=== PATIENT | male | born 1975 | race Caucasian/White ===

== ENCOUNTER 2018-04-05 12:10 | Emergency (ER) | payer BC, OTHER ==
[2018-04-05 12:18] VITALS: BP 135/89; PULSE 79; RESP 18; TEMP 97.8
--- NOTE | 2018-04-05 12:43 | ED ---
Upper Extremity HPI - General Chief Complaint: Extremity Injury, Upper Stated Complaint: [facility]-Finger Lac Time Seen by Provider: 04/05/18 12:19 Source: patient Mode of arrival: ambulatory Limitations: no limitations - History of Present Illness Initial Comments: 42-year-old male presents emergency Department with chief complaint of right hand index finger injury. Patient states he was lifting a heavy shredder states they went to set it down and it slipped. Patient states that the other pro let go causing it to crush his finger. He states that there is bleeding from underneath the nail. He states that there was driving pain but has relief. Patient states his tetanus is up-to-date within last 5 years. States he is able to move it but is very sore. Patient offers no other complaints. - Related Data Home Medications Medication Instructions Recorded Confirmed Levothyroxine Sodium [Synthroid] 50 mcg PO DAILY 12/16/14 12/17/15 Levothyroxine Sodium [Synthroid] 100 mcg PO DAILY 12/17/15 12/17/15 Multivitamins, Thera [Multivitamin] 1 tab PO DAILY 12/17/15 12/17/15 [place]-3 Fatty Acids/Fish Oil [Fish 1 cap PO DAILY 12/17/15 12/17/15 Oil 1,000 mg Softgel] Previous Rx's Medication Instructions Recorded Meclizine [Antivert] 25 mg PO DAILY 10 Days tab 12/17/15 Ondansetron Odt [Zofran ODT] 4 mg PO Q8HR PRN #15 tab 12/17/15 Ibuprofen [Motrin] 600 mg PO Q8HR PRN #30 tab 04/05/18 Allergies Allergy/AdvReac Type Severity Reaction Status Date / Time No Known Allergies Allergy Verified 04/05/18 12:17 Review of Systems ROS Statement: Those systems with pertinent positive or pertinent negative responses have been documented in the HPI. ROS Other: All systems not noted in ROS Statement are negative. Past Medical History Past Medical History: Thyroid Disorder History of Any Multi-Drug Resistant Organisms: None Reported Past Surgical History: No Surgical Hx Reported Past Psychological History: No Psychological Hx Reported Smoking Status: Never smoker Past Alcohol Use History: None Reported Past Drug Use History: None Reported General Exam Limitations: no limitations General appearance: alert, in no apparent distress Head exam: Present: atraumatic, normocephalic, normal inspection Neck exam: Present: normal inspection, full ROM. Absent: tenderness, meningismus, lymphadenopathy Respiratory exam: Present: normal lung sounds bilaterally. Absent: respiratory distress, wheezes, rales, rhonchi, stridor Cardiovascular Exam: Present: regular rate, normal rhythm, normal heart sounds. Absent: systolic murmur, diastolic murmur, rubs, gallop, clicks Extremities exam: Present: other (Right hand second digit there is bleeding noted from the distal portion no open laceration nail is partially ruptured though intact, finger has full range of motion with moderate tenderness to distal portion) Course Vital Signs 04/05/18 12:14 Temperature 97.8 F Pulse Rate 79 Respiratory 18 Rate Blood Pressure 135/89 O2 Sat by Pulse 98 Oximetry Medical Decision Making - Medical Decision Making 42-year-old male presented for right hand index finger injury. X-rays were obtained no acute fracture tetanus is up-to-date at this point. Patient has a right finger contusion, nail injury. Return parameters were discussed patient will follow-up with [facility]. Disposition Clinical Impression: Crushing injury of finger of right hand, Injury of nail Disposition: HOME SELF-CARE Condition: Stable Instructions: Crush Injury (ED) Additional Instructions: Please return to the Emergency Department if symptoms worsen or any other concerns. Prescriptions: Ibuprofen [Motrin] 600 mg PO Q8HR PRN #30 tab PRN Reason: Pain Is patient prescribed a controlled substance at d/c from ED?: No Referrals: Maricel Ryan MD [Primary Care Provider] - 1-2 days Time of Disposition: 13:45
--- NOTE | 2018-04-05 13:27 | XR ---
EXAMINATION TYPE: XR finger RT DATE OF EXAM: 04/05/2018 COMPARISON: None HISTORY: Crush injury second digit TECHNIQUE: 3 views of the right index finger are obtained. FINDINGS: Joint spaces are preserved. Soft tissues appear normal. No acute fractures are evident. Follow-up exams can be performed 7-10 days from acute trauma for continued pain. IMPRESSION: 1. Normal three-view right index finger
== END 2018-04-05 14:06 | disposition home or self-care (01) ==
LOC: EC 12:10
DX: S60.121A Contusion of right index finger with damage to nail, initial encounter (principal); E07.9 Disorder of thyroid, unspecified; Z79.899 Other long term (current) drug therapy; W20.8XXA Other cause of strike by thrown, projected or falling object, initial encounter; Y93.89 Activity, other specified; Y92.69 Other specified industrial and construction area as the place of occurrence of the external cause; Y99.0 Civilian activity done for income or pay
CPT/HCPCS: 99283

== ENCOUNTER 2020-03-08 12:45 | Emergency (ER) | payer BC ==
[2020-03-08 12:51] VITALS: RESP 18
--- NOTE | 2020-03-08 13:02 | ED ---
Fall HPI - General Chief Complaint: Fall Stated Complaint: Fall Time Seen by Provider: 03/08/20 12:59 Source: patient Mode of arrival: ambulatory - History of Present Illness Initial Comments: 44-year-old male presenting to the emergency department with a chief complaint of a fall. Patient states he was up on a ladder approximately 5 feet when it lost balance and he landed on a wooden stove mostly with his hands and face. Patient reports he has a laceration on his chin which was initially bleeding but has since resolved. Patient also reports pain in the left wrist, particularly the medial aspect. He also reports some swelling in the region of states he has mostly full range of motion but some tenderness to palpation only. He denies taking medication to alleviate the symptoms. Tetanus is not up-to-date. No loss of consciousness. No blood thinners. - Related Data Home Medications Medication Instructions Recorded Confirmed Levothyroxine Sodium [Synthroid] 112 mcg PO DAILY 03/08/20 03/08/20 Allergies Allergy/AdvReac Type Severity Reaction Status Date / Time No Known Allergies Allergy Verified 03/08/20 14:19 Review of Systems ROS Statement: Those systems with pertinent positive or pertinent negative responses have been documented in the HPI. ROS Other: All systems not noted in ROS Statement are negative. Past Medical History Past Medical History: Thyroid Disorder History of Any Multi-Drug Resistant Organisms: None Reported Past Surgical History: No Surgical Hx Reported Past Psychological History: No Psychological Hx Reported Smoking Status: Never smoker Past Alcohol Use History: None Reported Past Drug Use History: None Reported General Exam Limitations: no limitations General appearance: alert, in no apparent distress Head exam: Present: atraumatic, normocephalic, normal inspection. Absent: other (Negative Ortiz sign, raccoon eyes, hemotympanum.) Eye exam: Present: normal appearance, PERRL, EOMI, other (Superficial laceration under the lower lip measuring approximately 2 cm in length.). Absent: scleral icterus, conjunctival injection, nystagmus Pupils: Present: normal accommodation ENT exam: Present: normal exam, normal oropharynx (No intraoral trauma.), mucous membranes moist, TM's normal bilaterally, normal external ear exam Neck exam: Present: normal inspection, full ROM. Absent: tenderness, lymphadenopathy Respiratory exam: Present: normal lung sounds bilaterally. Absent: respiratory distress, wheezes, rales, rhonchi, stridor, chest wall tenderness (No chest wall pain), accessory muscle use Cardiovascular Exam: Present: regular rate, normal rhythm, normal heart sounds. Absent: systolic murmur, diastolic murmur GI/Abdominal exam: Present: soft. Absent: distended, tenderness, guarding, rebound Extremities exam: Present: full ROM (Full range of motion of left wrist), tenderness (Tenderness along the distal radius of the left forearm. No snuffbox tenderness.), normal capillary refill, other (+2 ulnar and radial pulses bilateral. Sensation intact in the left upper extremity.). Absent: normal inspection (Swelling and slight ecchymosis in the medial aspect of the left wrist.), pedal edema, joint swelling, calf tenderness Back exam: Present: normal inspection, full ROM. Absent: tenderness, CVA tenderness (R), CVA tenderness (L), muscle spasm, paraspinal tenderness, vertebral tenderness Neurological exam: Present: alert, oriented X3, normal gait Psychiatric exam: Present: normal affect, normal mood. Absent: depressed, agitated Skin exam: Present: warm, dry, intact, normal color Course Vital Signs 03/08/20 03/08/20 12:48 14:34 Temperature 97.2 F L 97.6 F Pulse Rate 65 62 Respiratory 18 18 Rate Blood Pressure 123/83 120/80 O2 Sat by Pulse 97 99 Oximetry Procedures - Laceration Laceration #1 Consent Obtained: verbal consent Indication: laceration Site: face Size (cm): 2 Description: linear, clean Depth: simple, single layer Sedation/Analgesia: none Pre-repair: irrigated extensively, deep structures intact Type of Sutures: other (Tissue adhesive) Size of Sutures: other (Tissue adhesive) Technique: other (Tissue adhesive) Patient Tolerated Procedure: well, no complications - Orthopedic Splinting/Casting Injury #1 Side: left Upper Extremity Injury Location: short arm Upper Extremity Immobilizer: volar splint, Duy wrap, synthetic pre-padded splint Medical Decision Making - Medical Decision Making 44-year-old male presenting to the emergency department with a chief complaint of a fall. Physical examination, patient has a small laceration under the lower lip that is very superficial. He also has some swelling and pain and tenderness in the wrist, left. He is otherwise neurovascularly intact in the left upper extremity. CT of the brain and C-spine is unremarkable. The small laceration was repaired with tissue adhesive. X-ray of the left wrist reveals a comminuted distal radial fracture with minimal displacement. Patient was offered analgesia, he declined initially. He did request some analgesia for home. He was given Tylenol 3 starter pack. I did apply a volar splint on the left upper extremity. I advised him to follow-up with the software product specialist. He was otherwise advised to alternate between Tylenol and Motrin for pain control. Tetanus was also updated. Strict return parameters were thoroughly discussed with patient is worsening agreeable. Case discussed physician. Disposition Clinical Impression: Fall, Head injury, Laceration, Distal radius fracture, left Disposition: HOME SELF-CARE Condition: Stable Instructions (If sedation given, give patient instructions): Wrist Fracture in Adults (ED) Additional Instructions: Follow with software product specialist. Take prescribed medication as directed. Do not drive or operate heavy machinery when taking Tylenol 3. Return to emergency department if symptoms worsen. Is patient prescribed a controlled substance at d/c from ED?: No Referrals: None,Stated [REFERRING] - 1-2 days Trev Gr MD [STAFF PHYSICIAN] - 1-2 days Time of Disposition: 14:15
[2020-03-08] MEDS ORDERED: TOPICAL SKIN ADHESIVE 1 EACH AMP TOPICAL ONE (13:14)
--- NOTE | 2020-03-08 13:26 | CT ---
EXAMINATION TYPE: CT brain steph cazares DATE OF EXAM: 03/08/2020 COMPARISON: None HISTORY: fall down ladder, headache, neck pain CT DLP: 1457.[address] Brain: Unenhanced CT of the brain was performed. The ventricles, basal cisterns and sulci overlying the cerebral convexities demonstrate a normal appe arance. There is no evidence for intracranial hemorrhage or sulcal effacement. No mass effects are seen. If symptoms persist consider MRI. Osseous calvarium is intact. IMPRESSION: No acute intracranial process CT Cervical Spine: Unenhanced CT of the cervical spine was performed with bone and soft tissue window settings submitted . Coronal and sagittal reconstruction is obtained. There is normal alignment and prevertebral soft tissues. I do not see evidence for fracture or sublu xation. No significant degenerative changes are present. The lung apices are clear. IMPRESSION: No evidence for acute fracture or subluxation of the cervical spine.
--- NOTE | 2020-03-08 13:31 | XR ---
EXAMINATION TYPE: XR wrist complete LT DATE OF EXAM: 03/08/2020 CLINICAL HISTORY: pain TECHNIQUE: Frontal, lateral and oblique images of the left wrist are obtained. COMPARISON: None. FINDINGS: The distal radial fracture. Ulnar styloid component fracture noted as well. There is eviden ce of intra-articular extension. Displacement of an estimated 1.3 mm. Overlying soft tissue swelling noted. IMPRESSION: Comminuted distal radial fracture with ulnar styloid component. ICD 10 closed FRACTURE, INITIAL EVALUATION
[2020-03-08] MEDS ORDERED: ACET/COD 300 MG/30 MG STARTER PACK 6 TAB BTL PO STA (14:19)
[2020-03-08 14:35] VITALS: BP 120/80; PULSE 62; TEMP 97.6
== END 2020-03-08 14:34 | disposition home or self-care (01) ==
LOC: EC 12:45
DX: S52.502A Unspecified fracture of the lower end of left radius, initial encounter for closed fracture (principal); S01.511A Laceration without foreign body of lip, initial encounter; E07.9 Disorder of thyroid, unspecified; Z79.890 Hormone replacement therapy; W11.XXXA Fall on and from ladder, initial encounter
CPT/HCPCS: 12011; 29125; 70450; 72125; 99284

== ENCOUNTER → 2020-12-10 | Outpatient (CLI) | payer BC ==
--- NOTE | 2020-12-10 12:55 | FL ---
EXAMINATION TYPE: FL barium swallow DATE OF EXAM: 12/10/2020 CLINICAL INDICATION: 45-year-old male R13.14, pharyngoesophageal phase dysphagia, food sticks in thro at with episodes of coughing and choking. COMPARISON: None Total Fluoroscopy Time: 2 minutes 24 seconds 59 images obtained. FINDINGS: During swallowing, there appears to be trace intermittent penetration posteriorly towards the larynx. No aspiration is seen. The hypopharyngeal anatomy is preserved. The thoracic esophagus shows scattered fine saw-tooth contour throughout its length. Otherwise, no haywood spicious filling defect. There is also a small hiatal hernia. Moderate to severe gastroesophageal reflux during Valsalva and p ositional maneuvers. IMPRESSION: 1. Fine sawtooth contour along the length of the thoracic esophagus could represent irregularity rel ating to a nonspecific esophagitis. Correlate as to possible etiologies such as Maria L or other infe ctious causes. Noninfectious causes such as reflux esophagitis are also possible. Recommend direct vi sualization. 2. Small hiatal hernia with an episode of moderate to severe gastroesophageal reflux. 3. Trace intermittent penetration along the posterior wall of the larynx. This may be a consequence o f an underlying esophagitis/infectious etiology. Again, correlate with findings on direct visualizati on.
== END | disposition home or self-care (01) ==
LOC: RADUSWWP 07:38
PROVIDERS: ATTEND Family Medicine
DX: K44.9 Diaphragmatic hernia without obstruction or gangrene (principal); K21.9 Gastro-esophageal reflux disease without esophagitis; R13.14 Dysphagia, pharyngoesophageal phase
CPT/HCPCS: 74220

== ENCOUNTER → 2021-01-29 | Outpatient (CLI) | payer BC ==
[2021-01-29 15:00] LABS: Basophils # (A) 0.04 X 10*3/uL (0.00-0.10); Basophils % (A) 0.8 %; Eosinophils # (A) 0.21 X 10*3/uL (0.04-0.35); Eosinophils % (A) 4.2 %; HCT 47.1 % (39.6-50.0); HGB 15.6 g/dL (13.0-17.0); Lymphocytes # (A) 1.72 X 10*3/uL (0.90-5.00); Lymphocytes % (A) 34.3 %; MCH 27.5 pg (27.0-32.0); MCHC 33.1 g/dL (32.0-37.0); MCV 82.9 fL (80.0-97.0); Mean Platelet Volume 11.7 fL (9.5-12.2); Monocytes # (A) 0.41 X 10*3/uL (0.20-1.00); Monocytes % (A) 8.2 %; Neutrophils # (A) 2.62 X 10*3/uL (1.80-7.70); Neutrophils % (A) 52.3 %; Platelet Count 205 X 10*3/uL (140-440); RBC 5.68 X 10*6/uL (4.40-5.60); RDW 12.8 % (11.5-14.5); WBC 5.01 X 10*3/uL (4.50-10.00)
== END | disposition home or self-care (01) ==
LOC: LABWHC1 08:51
PROVIDERS: ATTEND Nurse Practitioner
DX: J30.9 Allergic rhinitis, unspecified (principal); R53.83 Other fatigue; R06.2 Wheezing; R06.02 Shortness of breath; R05 Cough
CPT/HCPCS: 36415; 82103; 82104; 82785; 85025; 86001; 86003; 86606; 86609

== ENCOUNTER 2021-03-09 09:21 | Day surgery (SDC) | payer BC ==
[2021-03-05 14:43] VITALS: BMI 31.3
[~2021-03-09 09:21] MED LIST: LACTATED RINGERS 1,000 ML IV SCH; LIDOCAINE 1% (10MG/ML) FOR IV START INTRADERMA PRN
[2021-03-09 09:46] VITALS: TEMP 96.1
[2021-03-09] MEDS ORDERED: PROPOFOL 10 MG/ML 20 ML VIAL IV ONE (10:21)
[2021-03-09] MEDS ORDERED: LIDOCAINE 1% INJ 10MG/ML (20 ML MDV) ONE (10:21)
[2021-03-09] MEDS ORDERED: GLYCOPYRROLATE 0.2 MG/ML 2 ML VIAL ONE (10:21)
--- NOTE | 2021-03-09 10:26 | P.GSHP ---
History of Present Illness H&P Date: 03/09/21 Chief Complaint: Dysphagia Patient here today for upper endoscopy. Esophagram showed some irregularity of the esophagus suspicious for esophagitis. Describes intermittent dysphagia for the past several years. Takes antiacids daily. No significant heartburn. 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 History of Any Multi-Drug Resistant Organisms: None Reported Past Surgical History: No Surgical Hx Reported Additional Past Surgical History / Comment(s): [place] teeth Past Anesthesia/Blood Transfusion Reactions: No Reported Reaction Smoking Status: Never smoker - Past Family History Mother Family Medical History: No Reported History Medications and Allergies Home Medications Medication Instructions Recorded Confirmed Type Levothyroxine Sodium [Synthroid] 112 mcg PO DAILY 03/08/20 03/05/21 History Cyanocobalamin (Vitamin B-12) 5,000 mcg PO DAILY 03/05/21 03/05/21 History [Vitamin B12] Omeprazole [PriLOSEC] 20 mg PO AC-BRKFST 03/05/21 03/05/21 History Allergies Allergy/AdvReac Type Severity Reaction Status Date / Time No Known Allergies Allergy Verified 03/09/21 09:35 Surgical - Exam Vital Signs Temp Pulse Resp BP Pulse Ox 96.1 F L 68 15 136/85 97 03/09/21 09:44 03/09/21 09:44 03/09/21 09:44 03/09/21 09:44 03/09/21 09:44 Physical exam: General: Well-developed, well-nourished HEENT: Normocephalic, sclerae nonicteric Abdomen: Nontender, nondistended Extremities: No edema Neuro: Alert and oriented Assessment and Plan (1) Dysphagia Narrative/Plan: Will proceed with upper endoscopy Current Visit: Yes Status: Acute Code(s): R13.10 - DYSPHAGIA, UNSPECIFIED SNOMED Code(s): 42544066
--- NOTE | 2021-03-09 10:34 | P.PCN ---
Date of Procedure: 03/09/21 Procedure(s) Performed: Preoperative Dx: Dysphagia Postoperative Dx: mild gastritis, distal esophagitis, small hiatal hernia Procedure: EGD with Bx Anesthesia: Sedation Endoscopist: Dr. Graham Specimens: antrum, GE junction Endoscopic Procedure: The patient was on the endoscopy table in the left decubitus position. The Olympus gastroscope was inserted into the oropharynx and passed under direct visualization to the region of the third portion of the duodenum. From that point the scope was slowly withdrawn inspecting all surfaces carefully. There were no neoplastic inflammatory or polypoid lesions throughout the duodenum. The pylorus was widely patent. The stomach was carefully inspected. There was mild gastritis present. A biopsy took place. The remainder of the stomach appeared normal. Retroflexion revealed a small sliding hiatal hernia. At the GE junction the patient had very slight narrowing consistent with early Schatzki's ring formation. There was mild inflammation of the GE junction. A biopsy was taken. The remainder the esophagus appear normal. The patient was then taken to the recovery room in stable condition per anesthesia guidelines. Recommendations: Continue antiacid therapy. Await biopsy results.
[2021-03-09 10:56] VITALS: BP 113/66; PULSE 59; RESP 18
== END 2021-03-09 11:35 | disposition home or self-care (01) ==
LOC: ORWHC2ENDO 09:21
PROVIDERS: ATTEND Surgery
DX: K29.50 Unspecified chronic gastritis without bleeding (principal); K21.00 Gastro-esophageal reflux disease with esophagitis, without bleeding; K44.9 Diaphragmatic hernia without obstruction or gangrene
CPT/HCPCS: 43239; 88305; J2001; J2704

== ENCOUNTER 2021-12-06 20:53 | Emergency (ER) | payer BC ==
[2021-12-06 21:04] VITALS: PULSE 64; RESP 22; TEMP 97.8
[2021-12-06] MEDS ORDERED: TOPICAL SKIN ADHESIVE 1 EACH AMP TOPICAL ONE (21:17)
[2021-12-06] MEDS ORDERED: LIDOCAINE/EPINEPHR/TETRACAINE 5 ML BOTTLE TOPICAL ONE (21:17)
--- NOTE | 2021-12-06 21:53 | ED ---
Wound/Laceration HPI - General Chief Complaint: Wound/Laceration Stated Complaint: Left Thumb Laceration Time Seen by Provider: 12/06/21 21:05 Source: patient, RN notes reviewed Mode of arrival: ambulatory Limitations: no limitations - History of Present Illness Initial Comments: This is a pleasant 46-year-old male who was using a grinding device at home when he isn't overtly caused a laceration to the extensor aspect of his left thumb. This occurred about 30 minutes prior to arrival. Patient denying any significant pain. Denies any functional impairment. No distal paresthesias. No other injuries. Patient is up-to-date on tetanus. Patient denies any immunosuppression or poor wound healing. She is a nonsmoker No headache, no fever or chills, no changes in vision or hearing, no sore throat or difficulty with speech, no neck pain, no chest pain or shortness of breath, no abdominal pain, no nausea or vomiting, no changes in urination or bowel movements, no numbness or tingling, no skin rashes or lesions. Past medical, surgical, social, and family history reviewed. - Related Data Home Medications Medication Instructions Recorded Confirmed Levothyroxine Sodium [Synthroid] 112 mcg PO DAILY 03/08/20 03/05/21 Cyanocobalamin (Vitamin B-12) 5,000 mcg PO DAILY 03/05/21 03/05/21 [Vitamin B12] Omeprazole [PriLOSEC] 20 mg PO AC-BRKFST 03/05/21 03/05/21 Allergies Allergy/AdvReac Type Severity Reaction Status Date / Time No Known Allergies Allergy Verified 12/06/21 21:04 Review of Systems ROS Statement: Those systems with pertinent positive or pertinent negative responses have been documented in the HPI. ROS Other: All systems not noted in ROS Statement are negative. Past Medical History Past Medical History: Thyroid Disorder History of Any Multi-Drug Resistant Organisms: None Reported Past Surgical History: No Surgical Hx Reported Past Psychological History: No Psychological Hx Reported Smoking Status: Never smoker Past Alcohol Use History: Occasional General Exam Limitations: no limitations General appearance: alert, in no apparent distress Head exam: Present: atraumatic, normocephalic, normal inspection Eye exam: Present: normal appearance, PERRL, EOMI. Absent: scleral icterus, conjunctival injection, periorbital swelling ENT exam: Present: normal exam Neck exam: Present: normal inspection Respiratory exam: Present: normal lung sounds bilaterally. Absent: respiratory distress, wheezes, rales, rhonchi, stridor Cardiovascular Exam: Present: regular rate, normal rhythm, normal heart sounds. Absent: systolic murmur, diastolic murmur, rubs, gallop, clicks GI/Abdominal exam: Present: soft. Absent: tenderness Extremities exam: Present: full ROM, normal capillary refill, other (Capillary refill is normal. Pulses are 2+4.). Absent: normal inspection (Patient has a 2 cm laceration to the extensor aspect of his left thumb overlying the proximal phalanx.), tenderness, pedal edema, joint swelling, calf tenderness Back exam: Present: normal inspection, full ROM (Full range of motion with regard to phalanges, hand, wrist on the left. No distal or proximal symptomology.). Absent: rash noted Neurological exam: Present: alert, oriented X3, CN II-XII intact. Absent: motor sensory deficit Psychiatric exam: Present: normal affect, normal mood Skin exam: Present: warm, dry, intact, normal color. Absent: rash Course Vital Signs 12/06/21 21:02 Temperature 97.8 F Pulse Rate 64 Respiratory 22 Rate O2 Sat by Pulse 98 Oximetry Procedures - Laceration Laceration #1 Consent Obtained: verbal consent Indication: laceration Site: upper extremity (Left thumb) Size (cm): 2 Description: linear Depth: simple, single layer Pre-repair: wound explored, irrigated extensively, deep structures intact Type of Sutures: other (Tissue adhesive) Technique: simple, interrupted Patient Tolerated Procedure: well, no complications Additional Comments: Clinical anesthetic Disposition Clinical Impression: Laceration of left thumb without complication Disposition: HOME SELF-CARE Condition: Good Instructions (If sedation given, give patient instructions): Skin Adhesive Care (ED) Additional Instructions: Follow-up with your regular physician if needed. Return to the ER immediately if any symptoms worsen, new symptoms arise, or any other problems develop. Is patient prescribed a controlled substance at d/c from ED?: No Referrals: Maricel Ryan MD [Primary Care Provider] - 1-2 days (If needed) Time of Disposition: 21:53
== END 2021-12-06 22:00 | disposition home or self-care (01) ==
LOC: EC 20:53
DX: S61.012A Laceration without foreign body of left thumb without damage to nail, initial encounter (principal); E07.9 Disorder of thyroid, unspecified; Z79.899 Other long term (current) drug therapy; X58.XXXA Exposure to other specified factors, initial encounter
CPT/HCPCS: 12001; 99282

== ENCOUNTER → 2023-01-25 | Outpatient (CLI) | payer BC | END | disposition home or self-care (01) | LOC: LABWHC1 16:14 | PROVIDERS: ATTEND Family Medicine | DX: J45.991 Cough variant asthma (principal) | CPT/HCPCS: 36415 ==